=== PATIENT | male | born 1960 | race Caucasian/White ===

== ENCOUNTER 2016-11-04 15:01 | Emergency (ER) | payer OTHER ==
[2016-11-04 15:06] VITALS: BP 151/84; BMI 31.3
--- NOTE | 2016-11-04 17:57 | DR.GENAD ---
HPI - PCP Primary Care Physician: NEVILLE - Complaint/Symptoms Chief Complaint:: PT C/O RT KNEE PAIN. PT STATES HE FELL INTO A HOLE WHEN HE STEP DOWN OFF OF THE TRUCK. - Nurses notes reviewed Nurses Notes Review: Yes - Source History Provided: Patient - Mode of Arrival Mode of Arrival: Ambulatory - Timing Onset of Chief Complaint: 11/04/16 PMH - PMH Past Medical History: No Past Surgical History: Yes Surgical History: Ortho Surgery Past Surgical History Comment: NOSE SURGERY - Family History History of Family Medical Conditions: No - Social History Does any household member use tobacco: No Alcohol Use: None Do you use any recreational Drugs:: No Lives With: Family Lives Where: Home - infectious screening In the last 2 months have you had wt loss of >10#?: NO Have you had fever, night sweats or hemotysis?: No Have you traveled outside the country in the last 6 months?: No Isolation: Standard PE - Vital Signs Vitals: Temperature 97.4 F Pulse Rate 89 Respiratory Rate 20 Blood Pressure 151/84 O2 Sat by Pulse Oximetry 96 - Discharge Plan Condition: Stable Prescriptions: Ibuprofen [MOTRIN TAB 800 MG *] 800 mg PO Q8H PRN #20 tab PRN Reason: Pain/Inflammation Tramadol HCl 50 mg PO Q8H PRN #15 tablet PRN Reason: - Follow ups/Referrals Follow ups/Referrals: ANNIE LOZADA [Primary Care Provider] - 3 days - Instructions Instructions: Knee Pain, [id number] Additional Instructions: RETURN TO ED IF WORSE.
--- NOTE | 2016-11-04 18:12 | RAD ---
HISTORY: Right knee pain. Study: Right knee three views Comparison: None. Findings: A true lateral radiograph and sunrise view were not included in the series. There is no evidence for acute cortical disruption or dislocation. There is narrowing of the lateral greater than medial compartments. The lateral radiograph fails to demonstrate significant joint eff usion. Patellofemoral compartment is normal in appearance. IMPRESSION: 1. Arthritic change, without evidence of acute osseous injury. Reported By:
[2016-11-04] MEDS ORDERED: ULTRAM ONE (18:45)
[2016-11-04] MEDS ORDERED: MOTRIN TAB 800 MG PO ONE ×2 (18:45→18:50)
[2016-11-04] MEDS ORDERED: ULTRAM PO ONE (18:49)
== END 2016-11-04 18:52 | disposition home or self-care (01) ==
LOC: SUPCPDRO 15:01 → ER 15:13
DX: M25.561 Pain in right knee (principal); W18.42XA Slipping, tripping and stumbling without falling due to stepping into hole or opening, initial encounter
CPT/HCPCS: 73564; 99282